=== PATIENT | male | born 1935 | race Caucasian/White ===

== ENCOUNTER 2016-12-23 13:15 | Emergency (ER) | payer MEDICARE, OTHER ==
[~2016-12-23 13:15] MED LIST: ASA325 MG PO; BENADRYL-DPS25 MG PO; CEPACOL SORE T1 EACH PO; COMPAZINE10 MG PO; DULCOLAX-DPS5 MG PO; EFFEXOR DPS75 MG PO; FLEXERIL-DPS10 MG PO; KLONOPIN DPS0.5 MG PO; LOPRESSOR DPS12.5 MG PO; MAALOX DPS30 ML PO; MILK OF MAGNESI10 ML PO; MULTIPLE VITAM1 EACH PO; OXY IR DPS5 MG PO; PROTONIX40 MG PO; PROZAC DPS20 MG PO; SENOKOT S1 TAB PO; SINEMET 25/1001 TAB PO; UROXATRAL10 MG PO
--- NOTE | 2016-12-29 15:44 | ER ---
ADMIT: 12/23/2016 RM/LOC: ER [facility] MR#: [id number] [address] [id number] KATRINA WHEATLEY [address] [facility] [place] [address] Emergency Room Report SEX: M AGE: 81 : 1935 DATE: 12/23/2016 SUBJECTIVE: The patient is a 81-year-old, very pleasant male, who presents to emergency room with his complaining of back pain. He said he fell on a [place] sideways and injured his side. He has a low blood pressure of 96/64, pulse 56, respirations 18, temperature is 97.4, but says that this is kind of normal for him. He has a history of Parkinson's and takes medications for his symptoms. We did do a physical examination on him. X-ray to pinpoint any fracture of the ribs, and the x-ray of the ribs was negative. He was discharged with rib contusion diagnosis and advised to take deep breaths and ice the area. I did give him a prescription for Anthon, but advised that this will be only for the first 2 to 3 days of his acute pain and follow up with Dr. Motley. RADHA Lauren / Kb Bowen MD / rios JOB #: [id number] CC: Kb Bowen MD, Attending Physician Edil Motley DO, Family Physician
== END 2016-12-23 16:31 | disposition home or self-care (01) ==
LOC: ER 13:15
DX: S20.221A Contusion of right back wall of thorax, initial encounter (principal); Y92.480 Sidewalk as the place of occurrence of the external cause; W10.1XXA Fall (on)(from) sidewalk curb, initial encounter